=== PATIENT | male | born 1985 | race Hispanic/Latino ===

== ENCOUNTER 2021-01-14 11:45 | Emergency (ER) | payer BC, SELFPAY | END 2021-01-14 13:45 | disposition home or self-care (01) | LOC: ERS 11:45 | DX: S30.812A Abrasion of penis, initial encounter (principal); R03.0 Elevated blood-pressure reading, without diagnosis of hypertension; X58.XXXA Exposure to other specified factors, initial encounter | CPT/HCPCS: 99283 ==

== ENCOUNTER 2021-01-29 04:44 | Emergency (ER) | payer SELFPAY | END 2021-01-29 05:23 | disposition home or self-care (01) | LOC: ERS 04:44 | DX: K12.0 Recurrent oral aphthae (principal) | CPT/HCPCS: 99282 ==

== ENCOUNTER 2021-09-22 10:13 | Emergency (ER) | payer OTHER, SELFPAY | END 2021-09-22 12:10 | disposition left against medical advice (07) | LOC: ERS 10:13 | DX: Z53.21 Procedure and treatment not carried out due to patient leaving prior to being seen by health care provider (principal) | CPT/HCPCS: 93005 ==

== ENCOUNTER 2021-09-29 01:07 | Emergency (ER) | payer OTHER, SELFPAY | END 2021-09-29 01:23 | LOC: ERS 01:07 | DX: Z02.89 Encounter for other administrative examinations (principal) | CPT/HCPCS: 99284 ==